=== PATIENT | male | born 1980 | race Native Hawaiian/Other Pacific Islander ===

== ENCOUNTER → 2023-10-29 | Outpatient (CLI) | payer OTHER ==
[2023-10-29 12:54] LABS: IMMUNOGLOBULIN A 145.3 MG/DL (40-350)
[2023-10-29 12:56] LABS: FREE T4 1.3 NG/DL (0.89-1.76)
[2023-10-29 12:57] LABS: THYROID STIMULATING HORMONE 2.426 uIU/ML (0.55-4.78)
[2023-11-02 19:11] LABS: CALPROTECTIN STOOL 29 ug/g (0-120); PANCREATIC ELASTASE STOOL 180 (>200)
== END ==
LOC: M LAB 11:03
PROVIDERS: ATTEND Internal Medicine Gastroenterology
DX: R19.4 Change in bowel habit (principal); R19.7 Diarrhea, unspecified

== ENCOUNTER 2023-11-30 19:42 | Emergency (ER) | payer OTHER ==
[~2023-11-30] VITALS: Ht 180.3 cm; Wt 78.2 kg
[~2023-11-30 19:42] MED LIST: GABA-282 PO; VENL75CA2 PO; [UNRECOGNIZED DRUG - REMARK] PO
[2023-11-30 20:27] LABS: BASO # 0.1 10^3/uL (0.0-0.2); BASO % 0.4 % (0.0-1.0); EOS # 0.1 10^3/uL (0.0-0.5); EOS % 0.6 % (0.0-3.0); HEMATOCRIT 46.7 % (42.0-52.0); HEMOGLOBIN 15.9 g/dl (13.5-17.5); LYMPH # 2.2 10^3/uL (1.5-5.0); LYMPH % 15.6 % (24.0-44.0); MEAN CORPUSCULAR HEMOGLOBIN 29.6 pg (27.0-33.0); MEAN CORPUSCULAR VOLUME 86.8 fl (80.0-96.0); MONO # 1.4 10^3/uL (0.0-0.8); MONO % 9.6 % (2.0-8.0); NEUTROPHILS # 10.5 10^3/uL (1.5-8.5); NEUTROPHILS % 73.4 % (36.0-66.0); PLATELET COUNT, AUTOMATED 200 10^3/uL (150-450); RED BLOOD COUNT 5.38 10^6/uL (4.30-6.10); WHITE BLOOD COUNT 14.3 10^3/uL (4.0-10.0)
[2023-11-30 20:55] LABS: BILIRUBIN,DIRECT 0.2 MG/DL (<0.4); BILIRUBIN,TOTAL 0.6 MG/DL (0.3-1.2); TOTAL PROTEIN 7.3 G/DL (5.7-8.2)
[2023-11-30] MEDS: ONDANSETRON 4MG 2ML VIAL IV ONE (21:43)
[2023-11-30] MEDS: NS 1,000 ML IV ONE (23:02)
[2023-12-01] MEDS ORDERED: ONDA4TAB6 PO (00:23)
[2023-12-01 00:30] VITALS: BP 103/59; TEMP 97.5; O2SAT 97
[2023-12-01] MEDS: POTASSIUM CHLORIDE 10% LIQ 20MEQ/15ML UDC PO ONE (00:44)
== END 2023-12-01 01:19 | disposition home or self-care (01) ==
LOC: EDBD 19:42 → M ED 19:42
DX: A05.9 Bacterial foodborne intoxication, unspecified (principal); K58.9 Irritable bowel syndrome, unspecified; F41.9 Anxiety disorder, unspecified; F32.A Depression, unspecified; Z79.891 Long term (current) use of opiate analgesic; Z79.83 Long term (current) use of bisphosphonates; Z79.899 Other long term (current) drug therapy
CPT/HCPCS: 80047; 80076; 83690; 85025; 87486; 87581; 87633; 87798; 96361; 96374; 99284; J2405

== ENCOUNTER 2023-12-07 07:11 | Day surgery (SDC) | payer OTHER ==
[~2023-12-07] VITALS: Ht 180.3 cm; Wt 76.7 kg
[~2023-12-07 07:11] MED LIST changes: +ONDA4TAB6 PO
[2023-12-07] MEDS: NS 1,000 ML IV ONE (07:42)
[2023-12-07] MEDS ORDERED: LIDOCAINE 1% MDV 20ML VIAL As Ordered ONE (08:03)
[2023-12-07] MEDS ORDERED: propofoL 200 MG/20 ML VIAL As Ordered ONE (08:03)
[2023-12-07 09:40] VITALS: BP 112/73; TEMP 97; O2SAT 100
== END 2023-12-07 10:05 | disposition home or self-care (01) ==
LOC: M OPP 07:11 → EDUNIT# 08:50 → M OPP 10:05
PROVIDERS: ATTEND Internal Medicine Gastroenterology
DX: K63.89 Other specified diseases of intestine (principal); R19.4 Change in bowel habit; R10.84 Generalized abdominal pain; G47.30 Sleep apnea, unspecified; Z99.89 Dependence on other enabling machines and devices; R07.9 Chest pain, unspecified; Z87.891 Personal history of nicotine dependence; Z79.891 Long term (current) use of opiate analgesic; Z79.899 Other long term (current) drug therapy